=== PATIENT | female | born 1945 | race Caucasian/White ===

== ENCOUNTER → 2025-01-16 | Outpatient (CLI) | payer MEDICARE, BC, SELFPAY ==
[2025-01-16 08:08] LABS: Quantiferon-TB* See Sep Rpt
[2025-01-16 08:33] LABS: Collection Type, Urine Clean Catch; Squamous Epithelial Cell,Urine 0 /hpf (0-5); WBC,Urine 0 /hpf (0-5)
[2025-01-16 09:01] LABS: Basophils # (Auto) 0.1 Thou/mm3 (0.0-0.2); Basophils % (Auto) 1 % (0-2.5); Eosinophils # (Auto) 0.1 Thou/mm3 (0.0-0.5); Eosinophils % (Auto) 1 % (0-10); Hematocrit 35.8 % (36.0-46.0); Hemoglobin 10.9 g/dL (12.0-16.0); Immature Granulocytes % (Auto) 0 % (0-0); Immature Granulocytes Auto 0.02 Thou/mm3 (0.00-0.00); Lymphocytes # (Auto) 5.3 Thou/mm3 (1.0-4.8); Lymphocytes % (Auto) 48 % (10-50); Mean Corpuscular HGB Conc 30.4 g/dl (31.0-37.0); Mean Corpuscular Hemoglobin 28.2 pg (25.0-35.0); Mean Corpuscular Volume 93 fL (80-100); Monocytes # (Auto) 0.8 Thou/mm3 (0.0-0.8); Monocytes % (Auto) 8 % (0-12); Neutrophils # (Auto) 4.7 Thou/mm3 (1.8-7.7); Neutrophils % (Auto) 42 % (37-80); Nucleated Red Blood Cell % 0 /100 WBC (0); Platelet Count 276 Thou/mm3 (140-440); RDW Standard Deviation 51.3 fL (36.4-46.3); Red Blood Count 3.87 Miln/mm3 (4.00-5.20)
[2025-01-16 09:07] LABS: Glucose Estimated Average 108 mg/dL (80-131); Hemoglobin A1C 5.4 % Hgb (4.8-6.0)
[2025-01-16 09:11] LABS: Amphetamine/Methamp Scrn,U Negative (Negative); Barbiturate Screen,Urine Negative (Negative); Benzodiazepines Screen,Urine Negative (Negative); Benzoylecgonine Screen, Ur Negative (Negative); Fentanyl Screen,Urine Negative (Negative); Opiate Screen,Urine Negative (Negative); THC Screen,Urine Negative (Negative)
[2025-01-16 09:13] LABS: Iron 26 mcg/dL (50-170); Percent Iron Saturation 6 % (20-55); Total Iron Binding Capacity 405 mcg/dL (250-425); Unsaturated Iron Binding 379 (225-295)
[2025-01-16 09:14] LABS: Folate 18.56 ng/mL (>5.38); Vitamin B12 249 pg/mL (211-911); Vitamin D 25 Hydroxy Total 34.6 ng/mL (7.3-40.2)
[2025-01-16 09:20] LABS: Sed Rate (ESR) 19 mm/hr (0-30)
[2025-01-16 09:31] LABS: Alanine Aminotransferase 11 U/L (10-49); Albumin, Serum 4.3 gm/dL (3.4-4.8); Albumin/Globulin Ratio 1.7 (1.2-2.2); Alkaline Phosphatase 74 U/L (46-116); Anion Gap 8 (7-16); Aspartate Amino Transferase 21 U/L (0-34); BUN/Creatinine Ratio 8 Ratio (12-20); Bilirubin,Total 0.3 mg/dL (0.3-1.2); Blood Urea Nitrogen 11 mg/dL (9-23); C-Reactive Protein < 0.5 mg/dL (0.0-0.9); Calcium 9.6 mg/dL (8.3-10.6); Calcium (Corrected) 9.6 mg/dL (8.5-10.1); Carbon Dioxide 24.7 mMol/L (20.0-31.0); Cardiac Risk Estimate 3.5 RATIO (3.7-5.6); Chloride 106 mMol/L (98-107); Cholesterol 169 mg/dL (132-200); Creatinine (Component) 1.3 mg/dL (0.6-1.3); Free T4 (Free Thyroxine) 1.52 ng/dL (0.89-1.76); Globulin 2.5 gm/dL (2.3-3.5); Glucose 110 mg/dL (74-106); HDL Cholesterol 48 mg/dL (40-60); LDL Cholesterol,Calculated 95 mg/dL (0-130); Osmolality,Calculated 277 (275-295); Potassium 4.8 mMol/L (3.4-5.1); Sodium 139 mMol/L (136-145); Total Protein 6.8 gm/dL (5.7-8.2); Triglycerides 132 mg/dL (30-150); Uric Acid 7.4 mg/dL (3.1-7.8); eGFR 42 See Note
[2025-01-16 14:57] LABS: Bilirubin,Urine Negative (Negative); Blood,Urine Negative (Negative); Clarity,Urine Clear (Clear/Hazy); Color,Urine Lt-Yellow (Lt Yel-Yel); Glucose, Urine Negative (Negative); Ketones,Urine Negative (Negative); Leukocyte Esterase,Urine Negative (Negative); Nitrite,Urine Negative (Negative); PH,Urine 5.5 (5.0-7.0); Protein,Urine Negative (Neg - Trace); Specific Gravity,Urine 1.019 (1.001-1.035); Urobilinogen,Urine Negative mg/dL (0.0-1.0)
[2025-01-16 15:52] LABS: RBC,Urine 1 /hpf (0-3)
[2025-01-21 06:54] LABS: T3 Uptake* 32 % (22-35)
== END | disposition home or self-care (01) ==
LOC: COPL 07:36
PROVIDERS: PCP Nurse Practitioner Family; Referring Provider Nurse Practitioner Family; Visit Provider Nurse Practitioner Family
DX: Z00.00 Encounter for general adult medical examination without abnormal findings (principal); E03.9 Hypothyroidism, unspecified; F33.1 Major depressive disorder, recurrent, moderate; Z13.820 Encounter for screening for osteoporosis; K58.2 Mixed irritable bowel syndrome; Z23 Encounter for immunization; F41.9 Anxiety disorder, unspecified; E78.2 Mixed hyperlipidemia; M25.562 Pain in left knee; J45.20 Mild intermittent asthma, uncomplicated; M1A.9XX0 Chronic gout, unspecified, without tophus (tophi); G57.93 Unspecified mononeuropathy of bilateral lower limbs; Z93.6 Other artificial openings of urinary tract status; Z71.41 Alcohol abuse counseling and surveillance of alcoholic; I10 Essential (primary) hypertension; M19.90 Unspecified osteoarthritis, unspecified site; G47.00 Insomnia, unspecified
CPT/HCPCS: 36415; 80053; 80061; 80307; 81001; 82306; 82607; 82746; 83036; 83540; 83550; 84439; 84443; 84479; 84550; 85025; 85652; 86140; 86480

== ENCOUNTER → 2025-06-02 | Outpatient (CLI) | payer MEDICARE, BC, SELFPAY ==
--- NOTE | 2025-06-02 | XR_ITS ---
Examination: PA lateral chest 2 views TECHNIQUE: Upright PA lateral chest 2 views Date and time: June 02, 2025, 12:14 PM INDICATIONS: Chest pain shortness of breath beginning one month ago. FINDINGS: Normal heart size Mild ectasia thoracic aorta. No pneumonia or pulmonary edema Prominent osteopenia IMPRESSION: No active disease
[2025-06-02 12:38] LABS: Quantiferon-TB* See Sep Rpt
[2025-06-02 13:00] LABS: Basophils # (Auto) 0.1 Thou/mm3 (0.0-0.2); Basophils % (Auto) 1 % (0-2.5); Eosinophils # (Auto) 0.2 Thou/mm3 (0.0-0.5); Eosinophils % (Auto) 1 % (0-10); Hematocrit 29.8 % (36.0-46.0); Immature Granulocytes Auto 0.07 Thou/mm3 (0.00-0.00); Lymphocytes # (Auto) 7.5 Thou/mm3 (1.0-4.8); Lymphocytes % (Auto) 47 % (10-50); Mean Corpuscular HGB Conc 27.9 g/dl (31.0-37.0); Mean Corpuscular Hemoglobin 21.6 pg (25.0-35.0); Mean Corpuscular Volume 78 fL (80-100); Monocytes # (Auto) 0.9 Thou/mm3 (0.0-0.8); Monocytes % (Auto) 6 % (0-12); Neutrophils # (Auto) 7.2 Thou/mm3 (1.8-7.7); Neutrophils % (Auto) 45 % (37-80); Nucleated Red Blood Cell # 0.00 Thou/mm3 (0.00-0.00); Nucleated Red Blood Cell % 0 /100 WBC (0); Platelet Count 325 Thou/mm3 (140-440); RDW Standard Deviation 49.3 fL (36.4-46.3); Red Blood Count 3.84 Miln/mm3 (4.00-5.20); White Blood Count 15.9 Thou/mm3 (3.6-11.0)
[2025-06-02 13:03] LABS: Hemoglobin 8.3 g/dL (12.0-16.0)
[2025-06-02 13:08] LABS: Glucose Estimated Average 114 mg/dL (80-131); Hemoglobin A1C 5.6 % Hgb (4.8-6.0)
[2025-06-02 13:19] LABS: Ferritin 4 ng/mL (7.3-270.7); Iron 25 mcg/dL (50-170); Percent Iron Saturation 4 % (20-55); Total Iron Binding Capacity 543 mcg/dL (250-425); Unsaturated Iron Binding 518 (225-295)
[2025-06-02 13:20] LABS: Folate 9.03 ng/mL (>5.38); Vitamin B12 236 pg/mL (211-911); Vitamin D 25 Hydroxy Total 28.7 ng/mL (7.3-40.2)
[2025-06-02 13:36] LABS: Alanine Aminotransferase < 7 U/L (10-49); Albumin, Serum 4.6 gm/dL (3.4-4.8); Albumin/Globulin Ratio 2.2 (1.2-2.2); Alkaline Phosphatase 65 U/L (46-116); Anion Gap 7 (7-16); Aspartate Amino Transferase 16 U/L (0-34); BUN/Creatinine Ratio 11 Ratio (12-20); Bilirubin,Total 0.4 mg/dL (0.3-1.2); Blood Urea Nitrogen 15 mg/dL (9-23); C-Reactive Protein < 0.5 mg/dL (0.0-0.9); Calcium 10.7 mg/dL (8.3-10.6); Calcium (Corrected) 10.7 mg/dL (8.5-10.1); Carbon Dioxide 26.6 mMol/L (20.0-31.0); Chloride 106 mMol/L (98-107); Creatinine (Component) 1.4 mg/dL (0.6-1.3); Free T4 (Free Thyroxine) 1.50 ng/dL (0.89-1.76); Globulin 2.1 gm/dL (2.3-3.5); Glucose 96 mg/dL (74-106); Osmolality,Calculated 280 (275-295); Potassium 3.9 mMol/L (3.4-5.1); Sodium 140 mMol/L (136-145); Thyroid Stimulating Hormone 1.97 uIU/mL (0.55-4.78); Total Protein 6.7 gm/dL (5.7-8.2); eGFR 38 See Note
[2025-06-02 13:37] LABS: Sed Rate (ESR) 14 mm/hr (0-30)
[2025-06-02 14:12] LABS: Amphetamine/Methamp Scrn,U Negative (Negative); Barbiturate Screen,Urine Negative (Negative); Benzodiazepines Screen,Urine Negative (Negative); Benzoylecgonine Screen, Ur Negative (Negative); Fentanyl Screen,Urine Negative (Negative); Opiate Screen,Urine Negative (Negative); THC Screen,Urine Negative (Negative)
[2025-06-08 07:24] LABS: T3 Uptake* 30 % (22-35); Thyroid Peroxidase Antibodies* <1 IU/mL (<9)
== END | disposition home or self-care (01) ==
LOC: CDIM 11:04 → COPL 12:27
PROVIDERS: PCP Nurse Practitioner Family; Referring Provider Nurse Practitioner Family; Visit Provider Radiology Diagnostic Radiology
DX: R06.02 Shortness of breath (principal); E03.9 Hypothyroidism, unspecified; R53.83 Other fatigue
CPT/HCPCS: 36415; 71046; 80053; 80307; 82306; 82607; 82728; 82746; 83036; 83540; 83550; 84439; 84443; 84479; 85025; 85652; 86140; 86376; 86480